=== PATIENT | female | born 1955 | race African-American/Black ===

== ENCOUNTER 2016-12-25 09:30 | Outpatient (CLI) | payer MEDICARE ==
[~2016-12-25] VITALS: Ht 165.1 cm; Wt 57.7 kg
--- NOTE | ~2016-12-25 | OP ---
PATIENT NAME: NICO SAMUEL MEDICAL RECORD: [id number] :59 LOCATION:D.OPS ADMISSION DATE: SURGEON: YONY PEREZ MD DATE OF OPERATION: 12/25/2016 PREOPERATIVE DIAGNOSIS: Malfunctioning G-tube in someone who is G-tube dependent for tube feedings. POSTOPERATIVE DIAGNOSIS: Malfunctioning G-tube in someone who is G-tube dependent for tube feedings. PROCEDURE: Gastrostomy tube change, 20 Georgian. SURGEON: Yony Perez MD ELECTRONIC EQUIPMENT REPAIRMEN: None. BLOOD LOSS: Minimal. ANESTHESIA: Local infiltration. COMPLICATIONS: None. The patient's daughter was upset that I was unable to attend them earlier. Evidently, they arrived in the outpatient department around 9:30 a.m. and I was not informed that they were there until about 1:00 as I was going through the outpatient department. While was over there, I changed the gastrostomy tube. I did this after infiltrating with a local anesthetic. The patient's daughter expressed her displeasure with the amount of time that had to wait. She also explained her displeasure that her mother fell some discomfort during the procedure. OPERATIVE COURSE: The patient was seen in the outpatient department. She was positioned supine. The area around the gastrostomy tube was sterilely prepped with Betadine. I then used a small needle to infiltrate tissues around the gastrostomy tube with 1% lidocaine. I tried access the balloon port of the gastrostomy tube and it was unclogged. I cut the tubing to the balloon port to allow the balloon to deflate. After it was fully deflated, I removed the gastrostomy tube in its entirety. I then tested the balloon of a new replacement gastrostomy tube. It inflated with saline and there was no leakage. I made sure it was well lubricated. I was able to advance it down through the gastrocutaneous stoma. I inflated it with 20 cc of normal saline. I then pushed the flange down against the abdominal wall. This is when the lady's daughter explained her displeasure with the fact that it appeared that her mother has some discomfort during the procedure. This is despite the fact that I allowed for a significant time for the local infiltration to take effect. I have advised them to have the gastrostomy tube change out every 6 months so that it does not get in this condition. We are going to obtain a confirmatory KUB after Gastrografin is instilled down the KUB to confirm placement of the gastrostomy tube. Then, the patient can be dismissed home and they can begin using the gastrostomy tube right away. TRANSINT:[id number] Voice Confirmation ID: [id number] DOCUMENT ID: [id number] OPERATIVE REPORT [id number] NICO SAMUEL ROBERT MD CC: [id number] DICTATION DATE: 12/25/16 1325 LOW PRESSURE BOILER TENDER: 12/25/16 1439 REG [facility] [address] [id number]
--- NOTE | ~2016-12-25 | HP ---
PATIENT: NICO SAMUEL MEDICAL RECORD: [id number] ACCOUNT: [id number] LOCATION:D.OPS : 59 ADMISSION DATE: 12/25/16 HISTORY AND PHYSICAL EXAMINATION History and Physical Addendum HISTORY OF PRESENT ILLNESS: I saw the patient in my office yesterday. The patient had a 20-Macedonian G-tube. She wanted a local anesthesia around the G-tube before it was removed and then reinserted. We did not have a 20-Macedonian G-tube in the office. For the typed portion of the history and physical, please see the progress note. PHYSICAL EXAMINATION: GENERAL: The patient does appear chronically ill. Does not appear acutely ill. VITAL SIGNS: Reviewed. HEAD: External ears appear normal. EYES: Extraocular movements are intact. NECK: She has tracheostomy. PULMONARY: Nonlabored. ABDOMEN: Left upper quadrant gastrostomy tube with surrounding cellulitis. IMPRESSION: Malfunctioning gastrostomy tube. The patient states it has been in for 2 years and is no longer functioning. PLAN: Change 20-Macedonian gastrostomy tube in the outpatient department. TRANSINT:[id number] Voice Confirmation ID: [id number] DOCUMENT ID: [id number] NIYAH PEREZ MD CC: BAILEY HOANG MD [id number] DICTATION DATE: 12/25/16 1311 ASSOCIATE CURATOR: 12/25/16 1342 REG [facility] [address] [place] [address]
[~2016-12-25 09:30] MED LIST: HYDROCODON-ACET15 ML PO; LEVAQUIN250 MG/10 PO; PAXIL20 MG PO; SYNTHROID50 MCG PO
[2016-12-25 11:30] VITALS: BP 124/67; Ht 165.1 cm; Wt 57.7 kg
--- NOTE | 2016-12-25 14:38 | NUR ---
[address] PEREZ PATIENT HERE AND READY FOR GTUBE CHANGE. TOLD PATIENT AND FAMILY DOCTOR NOTIFIED READY FOR PROCEDURE.
--- NOTE | 2016-12-25 15:02 | NUR ---
1300-DR PEREZ HERE TO DO G-TUBE REPLACEMENT WITH 20F TRI FUNNEL REPLACEMENT G TUBE. 1306-PROCEDURE COMPLETE. 1315-DR PEREZ STRESSED TO PATIENT THAT THIS SHOULD BE CHANGED EVERY 6 MONTHS OR SO. 1340-KUB WITH GASTROGRAFIN DONE. 1450-KUB SHOWS GOOD PLACEMENT PER DR PEREZ-OK TO DISCHARGE. 1455-DISCHARGED PER WHEELCHAIR.
== END 2016-12-25 14:50 | disposition home or self-care (01) ==
LOC: D.OPS 09:30
DX: K94.23 Gastrostomy malfunction (principal)

== ENCOUNTER 2016-12-26 13:35 | Emergency (ER) | payer MEDICARE ==
[2016-12-25 11:30] VITALS: BMI 21.1
[2016-12-26 14:48] LABS: BASOPHILS 0.1 % (0.0-2.0); EOSINOPHILS 0.1 % (0-7); HEMATOCRIT 34.9 % (36.0-48.0); HEMOGLOBIN 11.3 g/dL (12-16); IMMATURE GRANULOCYTES 0.3 % (0-5); LYMPHOCYTES 8.3 % (15-50); MCH 32.1 pg (26.0-34.0); MCHC 32.4 g/dL (31.0-37.0); MCV 99.1 fL (80.0-100.0); MEAN PLATELET VOLUME 11.1 fL (7.4-10.4); MONOCYTES 3.2 % (2-11); RBC 3.52 10x6/uL (4.00-5.40); RDW 14.9 % (11.5-14.5); WBC 14.8 10x3/uL (4.8-10.8)
[2016-12-26 14:49] LABS: PLATELET COUNT 330 10x3/uL (130-400)
[2016-12-26 15:03] LABS: ALBUMIN 3.9 g/dL (3.4-5.0); BILIRUBIN - TOTAL 0.31 mg/dL (0.2-1.3); CALCIUM 10.3 mg/dL (8.5-10.1); CARBON DIOXIDE 29.9 mmol/L (21.0-32.0); CREATININE - SERUM 1.1 mg/dL (0.6-1.3); POTASSIUM - SERUM 3.9 mmol/L (3.5-5.1); PROTEIN - SERUM 9.9 g/dL (6.4-8.2)
[2016-12-26 16:20] LABS: AMYLASE - SERUM 98 U/L (25-115); LIPASE 177 U/L (73-393)
== END 2016-12-26 19:12 | disposition home or self-care (01) ==
LOC: D.ER 13:35
PROVIDERS: Family Medicine
DX: R19.7 Diarrhea, unspecified (principal); R11.10 Vomiting, unspecified; C14.0 Malignant neoplasm of pharynx, unspecified

== ENCOUNTER 2016-12-29 09:19 | Emergency (ER) | payer MEDICARE ==
[2016-12-25 11:30] VITALS: BMI 21.1
== END 2016-12-29 10:32 | disposition home or self-care (01) ==
LOC: D.ER 09:19
DX: K94.29 Other complications of gastrostomy (principal); C14.0 Malignant neoplasm of pharynx, unspecified

== ENCOUNTER 2016-12-30 20:14 | Emergency (ER) | payer MEDICARE ==
[2016-12-25 11:30] VITALS: BMI 21.1
[2016-12-30 21:01] LABS: BASOPHILS 0.2 % (0.0-2.0); EOSINOPHILS 0.4 % (0-7); HEMATOCRIT 26.5 % (36.0-48.0); HEMOGLOBIN 8.6 g/dL (12-16); IMMATURE GRANULOCYTES 0.4 % (0-5); LYMPHOCYTES 9.1 % (15-50); MCH 31.7 pg (26.0-34.0); MCHC 32.5 g/dL (31.0-37.0); MCV 97.8 fL (80.0-100.0); MEAN PLATELET VOLUME 10.9 fL (7.4-10.4); MONOCYTES 5.2 % (2-11); NEUTROPHILS 84.7 % (40-80); PLATELET COUNT 303 10x3/uL (130-400); RBC 2.71 10x6/uL (4.00-5.40); WBC 16.1 10x3/uL (4.8-10.8)
[2016-12-30 21:19] LABS: ALBUMIN 3.8 g/dL (3.4-5.0); ANION GAP 12.5 mmol/L (8-16); BILIRUBIN - TOTAL 0.27 mg/dL (0.2-1.3); CALCIUM 9.6 mg/dL (8.5-10.1); CARBON DIOXIDE 30.3 mmol/L (21.0-32.0); CREATININE - SERUM 1.1 mg/dL (0.6-1.3); POTASSIUM - SERUM 3.8 mmol/L (3.5-5.1); PROTEIN - SERUM 8.5 g/dL (6.4-8.2)
[2016-12-30 21:43] LABS: APPEARANCE CLEAR (CLEAR); BILIRUBIN NEGATIVE (NEGATIVE); COLOR YELLOW (YELLOW); GLUCOSE NEGATIVE (NEGATIVE); KETONE NEGATIVE (NEGATIVE); LEUKOCYTE ESTERASE TRACE (NEGATIVE); NITRITE NEGATIVE (NEGATIVE); PROTEIN NEGATIVE (NEGATIVE); UROBILINOGEN NORMAL (NORMAL)
[2016-12-30 21:44] LABS: BACTERIA FEW /hpf (NONE SEEN); EPITHELIAL CELLS 0-5 /hpf (0-5); RED CELLS - URINE OCC /hpf (0-5); WHITE CELLS - URINE OCC /hpf (0-5)
== END 2016-12-30 22:45 | disposition home or self-care (01) ==
LOC: D.ER 20:14
PROVIDERS: Emergency Medicine
DX: R10.9 Unspecified abdominal pain (principal); K59.00 Constipation, unspecified; C14.0 Malignant neoplasm of pharynx, unspecified